=== PATIENT | female | born 1990 | race Caucasian/White ===

== ENCOUNTER 2016-05-28 14:03 | Emergency (ER) | payer MEDICAID, OTHER, SELFPAY ==
[~2016-05-28] VITALS: Ht 165.1 cm; Wt 95.3 kg
[2016-05-28 14:04] VITALS: BP 132/80
[2016-05-28] MEDS ORDERED: PERCOCET 5MG/325MG TAB PO ONE (15:15)
[2016-05-28 15:19] LABS: BASO % 0.6 % (0.0-1.0); EOS # 0.2 K/mm3 (0.0-0.50); EOS % 2.5 % (0.0-3.0); LARGE UNSTAINED CELL # 0.1 K/mm3 (0.0-0.4); LARGE UNSTAINED CELL % 1.3 % (0.0-4.0); LYMPH # 2.1 K/mm3 (1.5-6.5); LYMPH % 28.3 % (24.0-44.0); MEAN CORPUSCULAR HEMOGLOBIN 28.5 pg (27.0-33.0); MEAN CORPUSCULAR HGB CONC 32.8 g/dl (32.0-36.5); MEAN CORPUSCULAR VOLUME 87.1 fl (80.0-96.0); MONO # 0.3 K/mm3 (0.0-0.8); MONO % 3.7 % (0.0-5.0); NEUTROPHILS # 4.5 K/mm3 (1.8-7.7); NEUTROPHILS % 63.7 % (36.0-66.0); PLATELET COUNT, AUTOMATED 210 k/mm3 (150-450); RED CELL DISTRIBUTION WIDTH 12.1 % (11.5-14.5)
[2016-05-28 15:38] LABS: ANION GAP 10 MEQ/L (8-16); BLOOD UREA NITROGEN 19 MG/DL (7-18); CALCIUM LEVEL 9.2 MG/DL (8.5-10.1); CARBON DIOXIDE LEVEL 25 MEQ/L (21-32); CHLORIDE LEVEL 107 MEQ/L (98-107); CREATININE FOR GFR 0.83 MG/DL (0.55-1.02); GLOMERULAR FILTRATION RATE > 60.0 (>60); GLUCOSE, FASTING 112 MG/DL (70-105); POTASSIUM SERUM 3.8 MEQ/L (3.5-5.1); SODIUM LEVEL 142 MEQ/L (136-145)
[2016-05-28 15:44] LABS: ERYTHROCYTE SEDIMENTATION RATE 23 mm/hr (0-20)
--- NOTE | 2016-05-28 15:51 | REP ---
Left upper extremity duplex Doppler venous ultrasound. Real time compression and duplex Doppler evaluation of the left upper extremity deep venous system is performed. The left subclavian, jugular, axillary, brachial, basilic and cephalic veins are fully compressible where accessible with transducer pressure, and demonstrate no intraluminal thrombus and normal venous waveforms. There is no evidence of deep venous thrombosis. Impression: No evidence of deep venous thrombosis of the left upper extremity deep vein system. Signed by Jamal Vegas MD 05/28/2016 03:42 P
[2016-05-28] MEDS ORDERED: PERC5TAB6 PO (16:06)
[2016-05-28] MEDS ORDERED: NAPR500T PO (16:06)
--- NOTE | 2016-05-28 16:12 | REP ---
LEFT SHOULDER: REASON: Pain. HISTORY: Myositis ossificans. There is a large calcification in the left shoulder girdle which is oval in shape and measures approximately 6.2 x 3.7 cm. This large calcification obscures the glenohumeral joint in all views. There is no evidence of an acute fracture or dislocation. IMPRESSION: Large calcification in the left shoulder girdle consistent with the patient's history or known myositis ossificans. Signed by Robb Garza DO 05/29/2016 09:01 A
== END 2016-05-28 16:24 | disposition home or self-care (01) ==
LOC: M ED 15:49
DX: M61.11 Myositis ossificans progressiva, shoulder (principal)

== ENCOUNTER 2016-05-31 20:54 | Emergency (ER) | payer MEDICAID, SELFPAY ==
[~2016-05-31] VITALS: Ht 165.1 cm; Wt 86.2 kg
[~2016-05-31 20:54] MED LIST: NAPR500T PO; PERC5TAB6 PO
[2016-06-01 02:03] VITALS: BP 157/76
== END 2016-06-01 04:11 | disposition left against medical advice (07) ==
LOC: M ED 22:42
DX: M25.512 Pain in left shoulder (principal); Z53.21 Procedure and treatment not carried out due to patient leaving prior to being seen by health care provider

== ENCOUNTER → 2016-07-18 | Outpatient (RCR) | payer MEDICAID, OTHER | LOC: M PT 07-09 12:22 | PROVIDERS: ATTEND Orthopaedic Surgery | DX: Z51.89 Encounter for other specified aftercare (principal); M25.512 Pain in left shoulder; G89.29 Other chronic pain; M25.612 Stiffness of left shoulder, not elsewhere classified; M61.012 Myositis ossificans traumatica, left shoulder ==

== ENCOUNTER → 2016-07-23 | Outpatient (CLI) | payer OTHER ==
--- NOTE | 2016-07-24 01:53 | REP ---
Clinical: Pain. Technique: Internal rotation, external rotation, and Y view. Comparison: 05/28/2016. Findings: Large ovoid calcifications overlie the shoulder joint essentially unchanged compared to 05/28/2016, and may in part be a intra-articular. Associated inferior subluxation of the glenohumeral joint is also suggested. The acromioclavicular joint appears relatively maintained. Impression: 1. Large ovoid calcification similar to prior examination may be within soft tissues and/or intra-articular. 2. Inferior subluxation of the glenohumeral joint is suggested. Signed by Roger Segundo MD 07/24/2016 01:44 A
== END ==
LOC: M RAD 12:15
PROVIDERS: ATTEND Psychiatry & Neurology Neurology
DX: M61.412 Other calcification of muscle, left shoulder (principal); S43.032A Inferior subluxation of left humerus, initial encounter; M25.512 Pain in left shoulder; X58.XXXA Exposure to other specified factors, initial encounter; Y92.9 Unspecified place or not applicable; Y93.9 Activity, unspecified; Y99.9 Unspecified external cause status

== ENCOUNTER 2016-08-13 12:30 | Outpatient (RCR) | payer OTHER ==
[~2016-08-13 12:30] MED LIST changes: +PERC5TAB12 PO; -PERC5TAB6 PO
== END 2016-08-17 | disposition home or self-care (01) ==
LOC: M PT 12:30
PROVIDERS: ATTEND Orthopaedic Surgery
DX: Z51.89 Encounter for other specified aftercare (principal); M25.512 Pain in left shoulder; G89.29 Other chronic pain; M61.012 Myositis ossificans traumatica, left shoulder; M25.612 Stiffness of left shoulder, not elsewhere classified

== ENCOUNTER → 2016-10-30 | Outpatient (REF) | payer OTHER | LOC: M LAB REF 16:40 | PROVIDERS: ATTEND Physician Assistant | DX: J02.9 Acute pharyngitis, unspecified (principal) ==

== ENCOUNTER → 2017-04-27 | Outpatient (REF) | payer OTHER ==
[2017-04-27 15:55] LABS: APPEARANCE, URINE CLEAR (CLEAR); BACTERIA, URINE AUTO 1+ (NEGATIVE); BILIRUBIN, URINE AUTO NEGATIVE (NEGATIVE); BLOOD, URINE BLOOD 1+ (NEGATIVE); COLOR, URINE YELLOW (YELLOW); GLUCOSE, URINE (UA) AUTO NEGATIVE (NEGATIVE); KETONE, URINE AUTO NEGATIVE (NEGATIVE); LEUKOCYTE ESTERASE, URINE AUTO TRACE (NEGATIVE); MUCUS, URINE SMALL (NEGATIVE); NITRITE, URINE AUTO NEGATIVE (NEGATIVE); PROTEIN, URINE AUTO NEGATIVE (NEGATIVE); RBC, URINE AUTO 5 /HPF (0-3); SPECIFIC GRAVITY URINE AUTO 1.017 (1.002-1.035); SQUAMOUS EPITHELIAL CELL UR AU 1 /HPF (0-6); UROBILINOGEN, URINE AUTO 0.2 mg/dL (0.0-2.0); WBC, URINE AUTO 20 /HPF (0-3)
== END ==
LOC: M LAB REF 15:25
DX: N39.0 Urinary tract infection, site not specified (principal)

== ENCOUNTER → 2019-11-26 | Outpatient (CLI) | payer OTHER ==
[~2019-11-26] MED LIST changes: +NAPR-837 PO; -NAPR500T PO
[2019-11-26 20:23] LABS: FREE T3 2.8 PG/ML (2.2-4.0); THYROID STIMULATING HORMONE 0.733 uIU/ML (0.358-3.740); THYROXINE (T4) 7.7 UG/DL (4.5-12.0)
== END ==
LOC: M WUC 15:55
PROVIDERS: ATTEND Anesthesiology Pain Medicine
DX: E03.9 Hypothyroidism, unspecified (principal)

== ENCOUNTER → 2020-03-05 | Outpatient (REF) | payer OTHER ==
[2020-03-05 17:06] LABS: APPEARANCE, URINE HAZY (CLEAR); BACTERIA, URINE AUTO NEGATIVE (NEGATIVE); BILIRUBIN, URINE AUTO NEGATIVE (NEGATIVE); BLOOD, URINE BLOOD NEGATIVE (NEGATIVE); COLOR, URINE YELLOW (YELLOW); GLUCOSE, URINE (UA) AUTO NEGATIVE (NEGATIVE); KETONE, URINE AUTO NEGATIVE (NEGATIVE); LEUKOCYTE ESTERASE, URINE AUTO NEGATIVE (NEGATIVE); MUCUS, URINE SMALL (NEGATIVE); NITRITE, URINE AUTO NEGATIVE (NEGATIVE); PROTEIN, URINE AUTO NEGATIVE (NEGATIVE); RBC, URINE AUTO 2 /HPF (0-3); SPECIFIC GRAVITY URINE AUTO 1.026 (1.002-1.035); SQUAMOUS EPITHELIAL CELL UR AU 1 /HPF (0-6); UROBILINOGEN, URINE AUTO 0.2 mg/dL (0.0-2.0); WBC, URINE AUTO 1 /HPF (0-3)
[2020-03-05 18:19] LABS: CHLAMYDIA DNA AMPLIFICATION NEGATIVE (NEGATIVE); GC DNA AMPLIFICATION NEGATIVE (NEGATIVE)
== END ==
LOC: M LAB REF 16:36
PROVIDERS: ATTEND Physician Assistant Medical
DX: R30.0 Dysuria (principal)

== ENCOUNTER → 2020-10-25 | Outpatient (CLI) | payer OTHER ==
[2020-10-25 17:22] LABS: FREE T3 2.4 PG/ML (2.2-4.0); THYROID STIMULATING HORMONE 0.548 uIU/ML (0.358-3.740)
== END ==
LOC: M LAB 16:12
PROVIDERS: ATTEND Anesthesiology Pain Medicine
DX: E03.9 Hypothyroidism, unspecified (principal)

== ENCOUNTER 2021-09-03 11:14 | Emergency (ER) | payer OTHER ==
[~2021-09-03] VITALS: Ht 165.1 cm; Wt 88.4 kg
[2021-09-03] MEDS ORDERED: HYDR-3719 (11:29)
[2021-09-03] MEDS ORDERED: ONDANSETRON 4MG 2ML VIAL IV ONE (12:15)
[2021-09-03] MEDS ORDERED: NS 1,000 ML IV ONE (12:15)
[2021-09-03 12:52] LABS: BASO % 0.3 % (0.0-1.0); EOS # 0.1 10^3/uL (0.0-0.5); EOS % 0.8 % (0.0-3.0); HEMATOCRIT 38.5 % (36.0-47.0); HEMOGLOBIN 13.2 g/dl (12.0-15.5); LYMPH # 1.9 10^3/uL (1.5-5.0); LYMPH % 21.6 % (24.0-44.0); MEAN CORPUSCULAR HEMOGLOBIN 30.3 pg (27.0-33.0); MEAN CORPUSCULAR HGB CONC 34.3 g/dl (32.0-36.5); MEAN CORPUSCULAR VOLUME 88.3 fl (80.0-96.0); MONO # 0.4 10^3/uL (0.0-0.8); MONO % 4.7 % (2.0-8.0); NEUTROPHILS # 6.2 10^3/uL (1.5-8.5); NEUTROPHILS % 72.3 % (36.0-66.0); PLATELET COUNT, AUTOMATED 182 10^3/uL (150-450); RED BLOOD COUNT 4.36 10^6/uL (4.00-5.40); WHITE BLOOD COUNT 8.6 10^3/uL (4.0-10.0)
[2021-09-03 13:52] LABS: HCG, SERUM QUALITATIVE POSITIVE (NEGATIVE)
[2021-09-03 14:30] LABS: ALBUMIN 4.1 GM/DL (3.2-5.2); ALT/SGPT 16 U/L (12-78); BILIRUBIN,DIRECT 0.4 MG/DL (0.0-0.2); BILIRUBIN,TOTAL 1.9 MG/DL (0.2-1.0); BLOOD UREA NITROGEN 11 MG/DL (7-18); CALCIUM LEVEL 8.8 MG/DL (8.5-10.1); CARBON DIOXIDE LEVEL 21 MEQ/L (21-32); CHLORIDE LEVEL 109 MEQ/L (98-107); CREATININE FOR GFR 0.81 MG/DL (0.55-1.30); FREE THYROXINE INDEX 3.5 % (1.3-4.8); GLOMERULAR FILTRATION RATE > 60.0 (>60); GLUCOSE, FASTING 76 MG/DL (70-100); HCG, SERUM QUANTITATIVE 25805 MIU/ML; LIPASE 168 U/L (73-393); POTASSIUM SERUM 3.7 MEQ/L (3.5-5.1); SODIUM LEVEL 139 MEQ/L (136-145); T UPTAKE 31 % (30-39); THYROID STIMULATING HORMONE 0.746 uIU/ML (0.358-3.740); THYROXINE (T4) 11.2 UG/DL (4.5-12.0); TOTAL PROTEIN 7.3 GM/DL (6.4-8.2)
[2021-09-03 17:21] VITALS: BP 128/75
== END 2021-09-03 18:41 | disposition home or self-care (01) ==
LOC: M ED 11:14
DX: O26.811 Pregnancy related exhaustion and fatigue, first trimester (principal)
CPT/HCPCS: 76801; 76817; 80048; 80076; 83690; 84436; 84443; 84479; 84702; 84703; 85025; 87486; 87581; 87633; 87798; 93005; 93976; 96361; 96374; 99284; J2405

== ENCOUNTER 2021-09-07 19:53 | Emergency (ER) | payer OTHER ==
[~2021-09-07] VITALS: Ht 165.1 cm; Wt 84.5 kg
[~2021-09-07 19:53] MED LIST changes: +HYDR-3719
[2021-09-07 19:59] VITALS: BP 108/66
== END 2021-09-08 00:54 | disposition left against medical advice (07) ==
LOC: M ED 19:53
DX: Z53.21 Procedure and treatment not carried out due to patient leaving prior to being seen by health care provider (principal)

== ENCOUNTER 2021-09-18 10:15 | Emergency (ER) | payer OTHER ==
[~2021-09-18] VITALS: Ht 165.1 cm; Wt 84.6 kg
[2021-09-18] MEDS ORDERED: ONDA4TAB6 (10:26)
[2021-09-18] MEDS ORDERED: HYDR-3719 (10:26)
[2021-09-18 10:57] LABS: BASO % 0.3 % (0.0-1.0); EOS # 0.1 10^3/uL (0.0-0.5); EOS % 0.5 % (0.0-3.0); HEMATOCRIT 39.1 % (36.0-47.0); HEMOGLOBIN 12.9 g/dl (12.0-15.5); LYMPH % 21.2 % (24.0-44.0); MEAN CORPUSCULAR HEMOGLOBIN 29.6 pg (27.0-33.0); MEAN CORPUSCULAR VOLUME 89.7 fl (80.0-96.0); MONO # 0.4 10^3/uL (0.0-0.8); MONO % 4.6 % (2.0-8.0); NEUTROPHILS # 6.7 10^3/uL (1.5-8.5); NEUTROPHILS % 73.1 % (36.0-66.0); PLATELET COUNT, AUTOMATED 187 10^3/uL (150-450); RED BLOOD COUNT 4.36 10^6/uL (4.00-5.40); WHITE BLOOD COUNT 9.2 10^3/uL (4.0-10.0)
[2021-09-18] MEDS ORDERED: NS 1,000 ML IV ONE (11:15)
[2021-09-18] MEDS ORDERED: METOCLOPRAMIDE INJ 10MG/2ML VIAL (J2765 PER 1) IV ONE (11:15)
[2021-09-18 11:17] LABS: HCG, SERUM QUALITATIVE POSITIVE (NEGATIVE)
[2021-09-18 11:24] LABS: ALBUMIN 3.9 GM/DL (3.2-5.2); ALT/SGPT 17 U/L (12-78); BILIRUBIN,DIRECT 0.5 MG/DL (0.0-0.2); BILIRUBIN,TOTAL 1.8 MG/DL (0.2-1.0); BLOOD UREA NITROGEN 14 MG/DL (7-18); CALCIUM LEVEL 9.9 MG/DL (8.5-10.1); CARBON DIOXIDE LEVEL 21 MEQ/L (21-32); CHLORIDE LEVEL 107 MEQ/L (98-107); CREATININE FOR GFR 0.78 MG/DL (0.55-1.30); GLOMERULAR FILTRATION RATE > 60.0 (>60); GLUCOSE, FASTING 84 MG/DL (70-100); LIPASE 187 U/L (73-393); SODIUM LEVEL 138 MEQ/L (136-145); TOTAL PROTEIN 7.3 GM/DL (6.4-8.2)
[2021-09-18] MEDS ORDERED: REGL5TAB2 PO (13:35)
[2021-09-18 13:46] VITALS: BP 111/68
== END 2021-09-18 13:55 | disposition home or self-care (01) ==
LOC: M ED 10:15
DX: Z32.01 Encounter for pregnancy test, result positive (principal); O99.280 Endocrine, nutritional and metabolic diseases complicating pregnancy, unspecified trimester; O21.9 Vomiting of pregnancy, unspecified; Z3A.08 8 weeks gestation of pregnancy
CPT/HCPCS: 76801; 80048; 80076; 81001; 83690; 84703; 85025; 87086; 93976; 96361; 96374; 99284; J2765

== ENCOUNTER → 2021-09-20 | Outpatient (REF) | payer OTHER ==
[~2021-09-20] MED LIST changes: +ONDA4TAB6; +REGL5TAB2 PO
[2021-09-20 12:46] LABS: BASO % 0.5 % (0.0-1.0); EOS # 0.1 10^3/uL (0.0-0.5); EOS % 0.9 % (0.0-3.0); HEMATOCRIT 37.4 % (36.0-47.0); HEMOGLOBIN 12.3 g/dl (12.0-15.5); LYMPH % 24.8 % (24.0-44.0); MEAN CORPUSCULAR HGB CONC 32.9 g/dl (32.0-36.5); MEAN CORPUSCULAR VOLUME 91.2 fl (80.0-96.0); MONO # 0.4 10^3/uL (0.0-0.8); MONO % 4.7 % (2.0-8.0); NEUTROPHILS # 5.6 10^3/uL (1.5-8.5); PLATELET COUNT, AUTOMATED 193 10^3/uL (150-450); WHITE BLOOD COUNT 8.2 10^3/uL (4.0-10.0)
[2021-09-20 18:14] LABS: ALBUMIN 3.7 GM/DL (3.2-5.2); ALT/SGPT 23 U/L (12-78); BLOOD UREA NITROGEN 10 MG/DL (7-18); CARBON DIOXIDE LEVEL 22 MEQ/L (21-32); CHLORIDE LEVEL 106 MEQ/L (98-107); CHOLESTEROL LEVEL 203 MG/DL (<200); CHOLESTEROL RISK RATIO 2.636 (<5); CREATININE FOR GFR 0.68 MG/DL (0.55-1.30); FREE T4 1.04 NG/DL (0.76-1.46); GLOMERULAR FILTRATION RATE > 60.0 (>60); GLUCOSE, FASTING 91 MG/DL (70-100); HDL CHOLESTEROL 77 MG/DL (>40); LDL CHOLESTEROL 103 MG/DL (<100); NON-HDL-C 126 MG/DL; POTASSIUM SERUM 4.1 MEQ/L (3.5-5.1); SODIUM LEVEL 136 MEQ/L (136-145); THYROID STIMULATING HORMONE 0.943 uIU/ML (0.358-3.740); TOTAL PROTEIN 6.9 GM/DL (6.4-8.2); TRIGLYCERIDES LEVEL 117 MG/DL (<150)
[2021-09-20 18:53] LABS: TESTOSTERONE 84 NG/DL (14-76)
== END ==
LOC: M SFHCADAM 10:14
PROVIDERS: ATTEND Family Medicine
DX: Z00.00 Encounter for general adult medical examination without abnormal findings (principal); E28.2 Polycystic ovarian syndrome

== ENCOUNTER → 2021-10-05 | Outpatient (CLI) | payer OTHER ==
[2021-10-05 14:11] LABS: BASO % 0.3 % (0.0-1.0); EOS % 0.3 % (0.0-3.0); HEMATOCRIT 37.6 % (36.0-47.0); HEMOGLOBIN 12.6 g/dl (12.0-15.5); LYMPH # 1.6 10^3/uL (1.5-5.0); LYMPH % 18.3 % (24.0-44.0); MEAN CORPUSCULAR HEMOGLOBIN 30.1 pg (27.0-33.0); MEAN CORPUSCULAR HGB CONC 33.5 g/dl (32.0-36.5); MEAN CORPUSCULAR VOLUME 89.7 fl (80.0-96.0); MONO # 0.3 10^3/uL (0.0-0.8); MONO % 3.6 % (2.0-8.0); NEUTROPHILS # 6.7 10^3/uL (1.5-8.5); NEUTROPHILS % 77.3 % (36.0-66.0); PLATELET COUNT, AUTOMATED 182 10^3/uL (150-450); RED BLOOD COUNT 4.19 10^6/uL (4.00-5.40); WHITE BLOOD COUNT 8.7 10^3/uL (4.0-10.0)
[2021-10-05 14:48] LABS: HEMOGLOBIN A1c 5.1 %
[2021-10-05 15:17] LABS: HEPATITIS C VIRUS ABY INDEX < 0.0 INDEX (<0.8); HIV 1&2 SCREEN CENTAUR NEGATIVE (NEGATIVE)
[2021-10-05 16:46] LABS: GC DNA AMPLIFICATION NEGATIVE (NEGATIVE)
== END ==
LOC: M PLALAB 11:27
PROVIDERS: ATTEND Advanced Practice Midwife
DX: O99.281 Endocrine, nutritional and metabolic diseases complicating pregnancy, first trimester (principal)

== ENCOUNTER → 2021-12-06 | Outpatient (CLI) | payer OTHER | LOC: M WHC 12:22 | PROVIDERS: ATTEND Obstetrics & Gynecology | DX: Z34.92 Encounter for supervision of normal pregnancy, unspecified, second trimester (principal); Z3A.19 19 weeks gestation of pregnancy ==

== ENCOUNTER → 2021-12-06 | Outpatient (CLI) | payer OTHER | LOC: M PLALAB 14:46 | PROVIDERS: ATTEND Specialist | DX: Z34.82 Encounter for supervision of other normal pregnancy, second trimester (principal) ==

== ENCOUNTER 2021-12-16 10:45 | Outpatient (CLI) | payer OTHER ==
[2021-12-16] VITALS (8 sets, daily range): BP systolic 119–147; BP diastolic 59–85
[~2021-12-16] VITALS: Ht 165.1 cm; Wt 92.8 kg
[~2021-12-16 10:45] MED LIST changes: +HYDR-3719 PO
[2021-12-16] MEDS ORDERED: PREN1CHW4 PO (11:19)
[2021-12-16] MEDS ORDERED: PROG200C22 PV (11:19)
[2021-12-16] MEDS ORDERED: HOME MED LIST COMPLETE! XX SCH (11:20)
[2021-12-16 15:37] LABS: HEMATOCRIT 33.4 % (36.0-47.0); HEMOGLOBIN 11.1 g/dl (12.0-15.5); MEAN CORPUSCULAR HEMOGLOBIN 30.7 pg (27.0-33.0); MEAN CORPUSCULAR HGB CONC 33.2 g/dl (32.0-36.5); MEAN CORPUSCULAR VOLUME 92.3 fl (80.0-96.0); PLATELET COUNT, AUTOMATED 174 10^3/uL (150-450); RED BLOOD COUNT 3.62 10^6/uL (4.00-5.40); WHITE BLOOD COUNT 12.2 10^3/uL (4.0-10.0)
[2021-12-16 15:59] LABS: APPEARANCE, URINE MANUAL CLEAR (CLEAR); BILIRUBIN, URINE MANUAL NEGATIVE (NEGATIVE); BLOOD URINE MANUAL NEGATIVE (NEGATIVE); COLOR, URINE MANUAL LT YELLOW (YELLOW); GLUCOSE, URINE (UA) MANUAL NEGATIVE (NEGATIVE); KETONE, URINE MANUAL 1+ mg/dL (NEGATIVE); LEUKOCYTE ESTERASE, URINE MAN NEGATIVE (NEGATIVE); NITRITE, URINE MANUAL NEGATIVE (NEGATIVE); PROTEIN, URINE MANUAL NEGATIVE (NEGATIVE); UROBILINOGEN, URINE MANUAL NORMAL (NORMAL)
[2021-12-16] MEDS ORDERED: LR 1,000 ML IV SCH ×3 (16:00→22:15)
[2021-12-16] MEDS ORDERED: ceFAZolin SOD 2 GM in IV 1 EA IV ONE (18:40)
[2021-12-16] MEDS ORDERED: BICITRA 30ML SOLN UDC PO ONE (18:40)
[2021-12-16] MEDS ORDERED: CHLOROPROCAINE PRES. FREE 3% 20ML VIAL As Ordered ONE (19:16)
[2021-12-16] MEDS ORDERED: ONDANSETRON 4MG 2ML VIAL IV PRN (20:50)
[2021-12-16] MEDS ORDERED: HYDROMORPHONE HCL 0.5 MG/ 0.5 ML SYRINGE (J1170 PER 1) IV PRN (20:50)
[2021-12-16] MEDS ORDERED: fentaNYL 100 MCG/2 ML INJECTION IV PRN (20:50)
[2021-12-16] MEDS ORDERED: oxyCODONE 5MG TAB PO PRN (20:50)
[2021-12-16] MEDS: INDOMETHACIN 25 MG CAP PO SCH (22:47)
[2021-12-17 01:49] VITALS: BP 97/55
[2021-12-17 05:42] VITALS: BP 96/59
[2021-12-17] MEDS: INDOMETHACIN 25 MG CAP PO SCH ×2 (05:49→13:24)
[2021-12-17] MEDS ORDERED: PRENATAL VITAMINS CHEWABLE TABLET PO SCH (09:00)
[2021-12-17] MEDS ORDERED: INDO-16 PO (13:22)
== END 2021-12-17 13:44 | disposition home or self-care (01) ==
LOC: M LDO 10:45 → M OBS 21:30 → M LDO 12-17 13:44
PROVIDERS: ATTEND Obstetrics & Gynecology
DX: O26.852 Spotting complicating pregnancy, second trimester (principal); O34.32 Maternal care for cervical incompetence, second trimester; Z3A.21 21 weeks gestation of pregnancy
CPT/HCPCS: 59025; 59320; 76815; 76817; 81002; 85027; 86850; 86900; 86901; 87635; J0690; J2400

== ENCOUNTER 2021-12-20 10:18 | Outpatient (CLI) | payer OTHER ==
[~2021-12-20] VITALS: Ht 165.1 cm; Wt 90.9 kg
[~2021-12-20 10:18] MED LIST changes: +INDO-16 PO; +PREN1CHW4 PO; +PROG200C22 PV
[2021-12-20 10:41] VITALS: BP 137/82
[2021-12-20] MEDS ORDERED: HOME MED LIST COMPLETE! XX SCH (10:50)
[2021-12-20 11:12] VITALS: BP 120/77
[2021-12-20 14:44] VITALS: BP 101/63
[2021-12-20 17:51] VITALS: BP 135/83
[2021-12-20] MEDS ORDERED: DOCUSATE SODIUM 100MG CAPSULE PO SCH (21:00)
[2021-12-20 22:00] VITALS: BP 120/76
[2021-12-21 02:00] VITALS: BP 103/58
[2021-12-21 06:00] VITALS: BP 127/78
[2021-12-21 07:30] VITALS: BP 139/86
== END 2021-12-21 08:05 | disposition home or self-care (01) ==
LOC: M LDO 10:18
PROVIDERS: ATTEND Advanced Practice Midwife
DX: O46.92 Antepartum hemorrhage, unspecified, second trimester (principal); O26.892 Other specified pregnancy related conditions, second trimester; R25.2 Cramp and spasm; O34.32 Maternal care for cervical incompetence, second trimester; Z3A.21 21 weeks gestation of pregnancy

== ENCOUNTER → 2021-12-21 | Outpatient (CLI) | payer OTHER | LOC: M WHC 12:04 | PROVIDERS: ATTEND Specialist | DX: Z34.82 Encounter for supervision of other normal pregnancy, second trimester (principal); Z3A.00 Weeks of gestation of pregnancy not specified; Z53.9 Procedure and treatment not carried out, unspecified reason ==

== ENCOUNTER → 2021-12-25 | Outpatient (REF) | payer OTHER ==
[2021-12-25 20:03] LABS: APPEARANCE, URINE MANUAL CLEAR (CLEAR); COLOR, URINE MANUAL YELLOW (YELLOW)
[2021-12-25 20:04] LABS: BILIRUBIN, URINE MANUAL NEGATIVE (NEGATIVE); BLOOD URINE MANUAL NEGATIVE (NEGATIVE); GLUCOSE, URINE (UA) MANUAL NEGATIVE (NEGATIVE); KETONE, URINE MANUAL NEGATIVE (NEGATIVE); LEUKOCYTE ESTERASE, URINE MAN POSITIVE (NEGATIVE); NITRITE, URINE MANUAL NEGATIVE (NEGATIVE); PROTEIN, URINE MANUAL NEGATIVE (NEGATIVE); UROBILINOGEN, URINE MANUAL NORMAL (NORMAL)
[2021-12-25 20:43] LABS: BACTERIA, URINE SMALL AMOUNT; CALCIUM OXALATE CRYSTALS,URINE MOD AMOUNT /hpf; HYALINE CAST, URINE NONE SEEN /lpf (0-1); MUCUS, URINE LARGE AMOUNT (NEGATIVE); SQUAMOUS EPITHELIAL CELL URINE LARGE AMOUNT /hpf (SMALL AMT); WBC, URINE 20-30 /hpf (0-3)
== END ==
LOC: M SFHCWAGY 16:39
PROVIDERS: ATTEND Advanced Practice Midwife
DX: O26.892 Other specified pregnancy related conditions, second trimester (principal)

== ENCOUNTER 2021-12-27 10:10 | Outpatient (CLI) | payer OTHER ==
[~2021-12-27] VITALS: Ht 165.1 cm; Wt 91.2 kg
[2021-12-27 17:07] LABS: BASO % 0.2 % (0.0-1.0); EOS # 0.2 10^3/uL (0.0-0.5); EOS % 1.3 % (0.0-3.0); HEMATOCRIT 31.7 % (36.0-47.0); HEMOGLOBIN 10.5 g/dl (12.0-15.5); LYMPH # 1.8 10^3/uL (1.5-5.0); MEAN CORPUSCULAR HEMOGLOBIN 30.5 pg (27.0-33.0); MEAN CORPUSCULAR HGB CONC 33.1 g/dl (32.0-36.5); MEAN CORPUSCULAR VOLUME 92.2 fl (80.0-96.0); MONO # 0.5 10^3/uL (0.0-0.8); MONO % 4.2 % (2.0-8.0); NEUTROPHILS # 9.5 10^3/uL (1.5-8.5); NEUTROPHILS % 78.6 % (36.0-66.0); PLATELET COUNT, AUTOMATED 175 10^3/uL (150-450); RED BLOOD COUNT 3.44 10^6/uL (4.00-5.40); WHITE BLOOD COUNT 12.1 10^3/uL (4.0-10.0)
[2021-12-27 17:50] LABS: ALT/SGPT 12 U/L (12-78); BILIRUBIN,TOTAL 0.3 MG/DL (0.2-1.0); CREATININE FOR GFR 0.73 MG/DL (0.55-1.30); GLOMERULAR FILTRATION RATE > 60.0 (>60); LDH LACTATE DEHYDROGENASE 122 U/L (84-246); URIC ACID 2.9 MG/DL (2.6-6.0)
[2021-12-27 18:31] LABS: TOTAL PROTEIN,RANDOM URINE 16.5 MG/DL (0.0-12.0)
== END 2021-12-27 18:05 | disposition home or self-care (01) ==
LOC: M LDO 10:10
PROVIDERS: ATTEND Advanced Practice Midwife
DX: O26.892 Other specified pregnancy related conditions, second trimester (principal); O99.282 Endocrine, nutritional and metabolic diseases complicating pregnancy, second trimester; O99.322 Drug use complicating pregnancy, second trimester; F11.90 Opioid use, unspecified, uncomplicated; O26.872 Cervical shortening, second trimester; N89.8 Other specified noninflammatory disorders of vagina; O99.342 Other mental disorders complicating pregnancy, second trimester; F41.9 Anxiety disorder, unspecified; O34.32 Maternal care for cervical incompetence, second trimester; Z3A.22 22 weeks gestation of pregnancy

== ENCOUNTER → 2022-01-04 | Outpatient (CLI) | payer OTHER ==
[~2022-01-04] MED LIST changes: +CYCL-707 PO
== END ==
LOC: M WHC 10:10
PROVIDERS: ATTEND Specialist
DX: Z34.82 Encounter for supervision of other normal pregnancy, second trimester (principal); Z3A.23 23 weeks gestation of pregnancy

== ENCOUNTER 2022-01-05 21:17 | Outpatient (CLI) | payer OTHER ==
[~2022-01-05] VITALS: Ht 165.1 cm; Wt 93.0 kg
[~2022-01-05 21:17] MED LIST changes: -CYCL-707 PO
[2022-01-05 21:29] VITALS: BP 133/86
[2022-01-05] MEDS ORDERED: HOME MED LIST COMPLETE! XX SCH (21:55)
[2022-01-05 22:40] VITALS: BP 131/69
[2022-01-05] MEDS ORDERED: BETAMETHASONE SOLUSPAN 6MG/ML 5ML VIAL (J0702 PER 3MG) IM SCH (23:00)
[2022-01-06 00:36] VITALS: BP 116/62
[2022-01-06 02:36] VITALS: BP 115/58
[2022-01-06 04:36] VITALS: BP 125/67
[2022-01-06 06:42] VITALS: BP 142/73
[2022-01-06 07:52] VITALS: BP 145/101
[2022-01-06] MEDS ORDERED: NORCO, ANEXSIA 5/325MG TABLET (HYDROcodone/ACETAMINOPHEN) PO SCH (09:00)
[2022-01-06] MEDS ORDERED: DOCUSATE SODIUM 100MG CAPSULE PO SCH (09:00)
[2022-01-06] MEDS ORDERED: BISACODYL 10 MG SUPP PR ONE (09:00)
[2022-01-06] MEDS ORDERED: CYCL-707 PO (14:55)
== END 2022-01-06 11:00 | disposition short-term general hospital (02) ==
LOC: M LDO 21:17
PROVIDERS: ATTEND Advanced Practice Midwife
DX: O46.092 Antepartum hemorrhage with other coagulation defect, second trimester (principal); O26.872 Cervical shortening, second trimester; O34.30 Maternal care for cervical incompetence, unspecified trimester; Z3A.23 23 weeks gestation of pregnancy
CPT/HCPCS: 59025; 76815; 87635; 96372; J0702

== ENCOUNTER → 2022-02-05 | Outpatient (CLI) | payer OTHER ==
[~2022-02-05] MED LIST changes: +CYCL-707 PO
[2022-02-05 13:57] LABS: APPEARANCE, URINE MANUAL CLEAR (CLEAR); COLOR, URINE MANUAL YELLOW (YELLOW)
[2022-02-05 14:00] LABS: GLUCOSE, URINE (UA) MANUAL NEGATIVE (NEGATIVE); PROTEIN, URINE MANUAL NEGATIVE (NEGATIVE); SPECIFIC GRAVITY,URINE MANUAL 1.015 (1.002-1.035)
[2022-02-05 14:01] LABS: BILIRUBIN, URINE MANUAL NEGATIVE (NEGATIVE); BLOOD URINE MANUAL POSITIVE (NEGATIVE); KETONE, URINE MANUAL NEGATIVE (NEGATIVE); LEUKOCYTE ESTERASE, URINE MAN NEGATIVE (NEGATIVE); NITRITE, URINE MANUAL NEGATIVE (NEGATIVE); UROBILINOGEN, URINE MANUAL NORMAL (NORMAL)
[2022-02-05 14:14] LABS: BACTERIA, URINE SMALL AMOUNT; HYALINE CAST, URINE NONE SEEN /lpf (0-1); RBC, URINE 0-1 /hpf (0-3); SQUAMOUS EPITHELIAL CELL URINE SMALL AMOUNT /hpf (SMALL AMT)
== END ==
LOC: M PLALAB 11:50
PROVIDERS: ATTEND Advanced Practice Midwife
DX: R30.0 Dysuria (principal)

== ENCOUNTER 2022-04-20 10:57 | Emergency (ER) | payer OTHER ==
[~2022-04-20] VITALS: Ht 165.1 cm; Wt 88.3 kg
[2022-04-20] MEDS ORDERED: NS 1,000 ML IV ONE (13:00)
[2022-04-20] MEDS ORDERED: MECLIZINE 25 MG TABLET PO ONE (13:00)
[2022-04-20 14:01] LABS: BASO % 0.8 % (0.0-1.0); EOS # 0.2 10^3/uL (0.0-0.5); EOS % 3.6 % (0.0-3.0); HEMATOCRIT 43.2 % (36.0-47.0); HEMOGLOBIN 13.9 g/dl (12.0-15.5); LYMPH # 2.4 10^3/uL (1.5-5.0); LYMPH % 47.7 % (24.0-44.0); MEAN CORPUSCULAR HEMOGLOBIN 28.4 pg (27.0-33.0); MEAN CORPUSCULAR HGB CONC 32.2 g/dl (32.0-36.5); MEAN CORPUSCULAR VOLUME 88.2 fl (80.0-96.0); MONO # 0.3 10^3/uL (0.0-0.8); MONO % 5.1 % (2.0-8.0); NEUTROPHILS # 2.2 10^3/uL (1.5-8.5); NEUTROPHILS % 42.6 % (36.0-66.0); PLATELET COUNT, AUTOMATED 207 10^3/uL (150-450); WHITE BLOOD COUNT 5.1 10^3/uL (4.0-10.0)
[2022-04-20 14:22] LABS: FREE THYROXINE INDEX 2.5 % (1.3-4.8); T UPTAKE 32.6 % (22.5-37.0); THYROID STIMULATING HORMONE 0.602 uIU/ML (0.55-4.78); THYROXINE (T4) 7.6 UG/DL (4.5-10.9)
[2022-04-20 14:57] VITALS: BP 126/83
[2022-04-20] MEDS ORDERED: PSEU120T19 PO (15:24)
[2022-04-20] MEDS ORDERED: MECL1TAB31 PO (15:24)
== END 2022-04-20 15:55 | disposition home or self-care (01) ==
LOC: M ED 10:57
DX: H65.01 Acute serous otitis media, right ear (principal); R20.2 Paresthesia of skin; Z79.810 Long term (current) use of selective estrogen receptor modulators (SERMs); Z79.899 Other long term (current) drug therapy; Z91.048 Other nonmedicinal substance allergy status

== ENCOUNTER → 2022-05-21 | Outpatient (REF) | payer OTHER ==
[~2022-05-21] MED LIST changes: +MECL1TAB31 PO; +PSEU120T19 PO
== END ==
LOC: M PLALAB 10:22
PROVIDERS: ATTEND Obstetrics & Gynecology
DX: Z01.419 Encounter for gynecological examination (general) (routine) without abnormal findings (principal)

== ENCOUNTER → 2022-05-29 | Outpatient (REF) | payer OTHER ==
[2022-05-29 18:31] LABS: APPEARANCE, URINE CLEAR (CLEAR); BACTERIA, URINE AUTO NEGATIVE (NEGATIVE); BILIRUBIN, URINE AUTO NEGATIVE (NEGATIVE); BLOOD, URINE BLOOD NEGATIVE (NEGATIVE); COLOR, URINE YELLOW (YELLOW); GLUCOSE, URINE (UA) AUTO NEGATIVE (NEGATIVE); KETONE, URINE AUTO NEGATIVE (NEGATIVE); LEUKOCYTE ESTERASE, URINE AUTO NEGATIVE (NEGATIVE); MUCUS, URINE SMALL (NEGATIVE); NITRITE, URINE AUTO NEGATIVE (NEGATIVE); PROTEIN, URINE AUTO NEGATIVE (NEGATIVE); RBC, URINE AUTO 0 /HPF (0-3); SPECIFIC GRAVITY URINE AUTO 1.026 (1.002-1.035); SQUAMOUS EPITHELIAL CELL UR AU 2 /HPF (0-6); UROBILINOGEN, URINE AUTO 0.2 mg/dL (0.0-2.0); WBC, URINE AUTO 1 /HPF (0-3)
== END ==
LOC: M LAB REF 17:18
PROVIDERS: ATTEND Physician Assistant Medical
DX: N39.0 Urinary tract infection, site not specified (principal)

== ENCOUNTER → 2022-06-22 | Outpatient (REF) | payer OTHER ==
[2022-06-22 13:45] LABS: BASO # 0.1 10^3/uL (0.0-0.2); BASO % 1.1 % (0.0-1.0); EOS # 0.2 10^3/uL (0.0-0.5); EOS % 3.4 % (0.0-3.0); HEMATOCRIT 39.8 % (36.0-47.0); HEMOGLOBIN 13.2 g/dl (12.0-15.5); LYMPH # 1.6 10^3/uL (1.5-5.0); LYMPH % 34.3 % (24.0-44.0); MEAN CORPUSCULAR HEMOGLOBIN 29.6 pg (27.0-33.0); MEAN CORPUSCULAR HGB CONC 33.2 g/dl (32.0-36.5); MEAN CORPUSCULAR VOLUME 89.2 fl (80.0-96.0); MONO # 0.3 10^3/uL (0.0-0.8); MONO % 5.5 % (2.0-8.0); NEUTROPHILS # 2.6 10^3/uL (1.5-8.5); NEUTROPHILS % 55.5 % (36.0-66.0); PLATELET COUNT, AUTOMATED 197 10^3/uL (150-450); RED BLOOD COUNT 4.46 10^6/uL (4.00-5.40); WHITE BLOOD COUNT 4.7 10^3/uL (4.0-10.0)
[2022-06-22 14:02] LABS: ALBUMIN 4.2 G/DL (3.2-5.2); ALKALINE PHOSPHATASE 55 U/L (46-116); ALT/SGPT 17 U/L (7.0-40); AST/SGOT 13 U/L (<34); BILIRUBIN,TOTAL 2.4 MG/DL (0.3-1.2); BLOOD UREA NITROGEN 14 MG/DL (9-23); CALCIUM LEVEL 9.3 MG/DL (8.5-10.1); CARBON DIOXIDE LEVEL 28 MMOL/L (20-31); CHLORIDE LEVEL 106 MMOL/L (98-107); CREATININE FOR GFR 0.77 MG/DL (0.55-1.30); GLOMERULAR FILTRATION RATE > 60.0 (>60); GLUCOSE, FASTING 87 MG/DL (60-100); SODIUM LEVEL 141 MMOL/L (136-145); TOTAL PROTEIN 6.8 G/DL (5.7-8.2)
[2022-06-22 14:03] LABS: C REACTIVE PROTEIN QUANTITATIV < 0.40 MG/DL (<1.0)
[2022-06-22 14:04] LABS: THYROID STIMULATING HORMONE 0.742 uIU/ML (0.55-4.78)
[2022-06-22 14:05] LABS: FREE T4 1.09 NG/DL (0.89-1.76)
[2022-06-22 14:48] LABS: ERYTHROCYTE SEDIMENTATION RATE 13 mm/hr (0-20)
== END ==
LOC: M SFHCADAM 08:48
PROVIDERS: ATTEND Physician Assistant
DX: H93.13 Tinnitus, bilateral (principal); R42 Dizziness and giddiness; R20.2 Paresthesia of skin

== ENCOUNTER 2022-06-26 15:53 | Emergency (ER) | payer OTHER ==
[~2022-06-26] VITALS: Ht 165.1 cm; Wt 83.5 kg
[2022-06-26] MEDS ORDERED: CETI-24 (16:05)
[2022-06-26] MEDS ORDERED: OXYM30SP (16:05)
[2022-06-26] MEDS ORDERED: FLUT50SP17 (16:05)
[2022-06-26] MEDS ORDERED: METOCLOPRAMIDE INJ 10MG/2ML VIAL IV ONE (17:55)
[2022-06-26] MEDS ORDERED: MECLIZINE 25 MG TABLET PO ONE (17:55)
[2022-06-26] MEDS ORDERED: NS 1,000 ML IV ONE (17:55)
[2022-06-26] MEDS ORDERED: NORCO, ANEXSIA 5/325MG TABLET (HYDROcodone/ACETAMINOPHEN) PO ONE (21:15)
[2022-06-26] MEDS ORDERED: MECL-86 PO (22:26)
[2022-06-26 22:33] VITALS: BP 139/94
== END 2022-06-26 22:45 | disposition home or self-care (01) ==
LOC: M ED 15:53
DX: R42 Dizziness and giddiness (principal); J30.1 Allergic rhinitis due to pollen; Z79.899 Other long term (current) drug therapy; Z88.3 Allergy status to other anti-infective agents

== ENCOUNTER → 2022-07-03 | Outpatient (CLI) | payer OTHER ==
[~2022-07-03] MED LIST changes: +CETI-24; +FLUT50SP17; +MECL-86 PO; +OXYM30SP
== END ==
LOC: M RAD 07:40
PROVIDERS: ATTEND Physician Assistant
DX: H90.11 Conductive hearing loss, unilateral, right ear, with unrestricted hearing on the contralateral side (principal)

== ENCOUNTER 2022-07-16 08:05 | Emergency (ER) | payer OTHER ==
[~2022-07-16] VITALS: Ht 165.1 cm; Wt 81.7 kg
[2022-07-16] MEDS ORDERED: ONDA4TAB6 (08:14)
[2022-07-16] MEDS ORDERED: HYDR-3713 (08:14)
[2022-07-16] MEDS ORDERED: B-COSUB2 SL (08:14)
[2022-07-16] MEDS ORDERED: FLUO20CA22 (08:14)
[2022-07-16] MEDS ORDERED: MAGN200T PO (08:14)
[2022-07-16 09:23] VITALS: BP 142/87
== END 2022-07-16 09:30 | disposition home or self-care (01) ==
LOC: M ED 08:05
DX: J33.9 Nasal polyp, unspecified (principal); F41.9 Anxiety disorder, unspecified; H69.90 Unspecified Eustachian tube disorder, unspecified ear; J30.1 Allergic rhinitis due to pollen; Z79.899 Other long term (current) drug therapy; Z88.3 Allergy status to other anti-infective agents

== ENCOUNTER 2022-08-23 09:38 | Inpatient (IN) | payer MEDICAID, OTHER ==
[~2022-08-23] VITALS: Ht 165.1 cm; Wt 77.7 kg
[~2022-08-23 09:38] MED LIST changes: +B-COSUB2 SL; +FLUO20CA22; +HYDR-3363 PO; +HYDR-3713; +HYDR-3713 PO; +IBUP200C25 PO; +MAGN200T PO; -PROG200C22 PV; +PROG200C32 PV
[2022-08-23] MEDS ORDERED: MED REC IN PROGRESS XX SCH (10:15)
[2022-08-23 10:45] LABS: HEMATOCRIT 39.2 % (36.0-47.0); MEAN CORPUSCULAR HEMOGLOBIN 29.1 pg (27.0-33.0); MEAN CORPUSCULAR HGB CONC 33.2 g/dl (32.0-36.5); MEAN CORPUSCULAR VOLUME 87.7 fl (80.0-96.0); PLATELET COUNT, AUTOMATED 173 10^3/uL (150-450); RED BLOOD COUNT 4.47 10^6/uL (4.00-5.40); WHITE BLOOD COUNT 4.4 10^3/uL (4.0-10.0)
[2022-08-23 11:12] LABS: AMPHETAMINES LEVEL URINE NEGATIVE (NEGATIVE); BARBITURATES URINE NEGATIVE (NEGATIVE); BENZODIAZEPINES URINE NEGATIVE (NEGATIVE); COCAINE METABOLITE URINE NEGATIVE (NEGATIVE); METHADONE URINE NEGATIVE (NEGATIVE); PHENCYCLIDINE URINE NEGATIVE (NEGATIVE)
[2022-08-23 11:13] LABS: CANNABINOIDS URINE NEGATIVE (NEGATIVE)
[2022-08-23 11:15] LABS: ETHYL ALCOHOL (ETHANOL) < 0.003 % (0.000-0.010)
[2022-08-23 11:16] LABS: ACETAMINOPHEN LEVEL 3.6 UG/ML (10.0-20.0); SALICYLATE LEVEL < 3.0 MG/DL (<30)
[2022-08-23 11:17] LABS: ALBUMIN 4.2 G/DL (3.2-5.2); ALKALINE PHOSPHATASE 63 U/L (46-116); ALT/SGPT < 9 U/L (7.0-40); AST/SGOT < 8 U/L (<34); BILIRUBIN,DIRECT 0.5 MG/DL (<0.4); BLOOD UREA NITROGEN 17 MG/DL (9-23); CALCIUM LEVEL 9.1 MG/DL (8.5-10.1); CARBON DIOXIDE LEVEL 27 MMOL/L (20-31); CHLORIDE LEVEL 108 MMOL/L (98-107); CREATININE FOR GFR 0.81 MG/DL (0.55-1.30); GLOMERULAR FILTRATION RATE > 60.0 (>60); GLUCOSE, FASTING 90 MG/DL (60-100); POTASSIUM SERUM 3.9 MMOL/L (3.5-5.1); SODIUM LEVEL 142 MMOL/L (136-145); THYROID STIMULATING HORMONE 0.893 uIU/ML (0.55-4.78); TOTAL PROTEIN 6.6 G/DL (5.7-8.2)
[2022-08-23 11:18] LABS: OPIATES URINE POSITIVE (NEGATIVE)
[2022-08-23 11:28] LABS: HCG, SERUM QUALITATIVE NEGATIVE (NEGATIVE)
[2022-08-23] MEDS ORDERED: traZODone 50 MG TAB PO PRN (13:15)
[2022-08-23] MEDS ORDERED: IBUPROFEN 400MG TAB PO PRN (13:15)
[2022-08-23] MEDS ORDERED: MAALOX 30 ML SUSP *UDC PO PRN (13:15)
[2022-08-23] MEDS ORDERED: MOM 30ML SUSPENSION UDC PO PRN (13:15)
[2022-08-23] MEDS ORDERED: diphenhydrAMINE 25MG CAP PO PRN (13:15)
[2022-08-23] MEDS ORDERED: ACETAMINOPHEN TAB 650MG DOSE (2X325MG) PO PRN (13:15)
[2022-08-23] MEDS: NICOTINE 21MG/24HR 1 EA TRANSDERMAL TD SCH (14:33)
[2022-08-23 16:16] VITALS: BP 136/81; TEMP 97.1; O2SAT 99
[2022-08-23] MEDS ORDERED: NORCO, ANEXSIA 5/325MG TABLET (HYDROcodone/ACETAMINOPHEN) PO ONE (20:55)
[2022-08-23] MEDS ORDERED: IBUP-1730 PO (21:42)
[2022-08-23] MEDS ORDERED: BACL10TA2 PO (21:42)
[2022-08-23] MEDS ORDERED: LORA-674 PO (21:42)
[2022-08-23] MEDS ORDERED: VITMTA PO (21:42)
[2022-08-23] MEDS ORDERED: HYDR-4571 PO (21:42)
[2022-08-23] MEDS ORDERED: ONDA4TAB6 PO (21:42)
[2022-08-23] MEDS ORDERED: OFLO5DRO AD (21:42)
[2022-08-23] MEDS ORDERED: HOME MED LIST COMPLETE! XX SCH (21:45)
[2022-08-24] MEDS ORDERED: BACLOFEN 10 MG TAB PO PRN (01:10)
[2022-08-24] MEDS ORDERED: ONDANSETRON 4MG ORAL DISINTEGRATING TAB PO PRN (01:10)
[2022-08-24 06:08] VITALS: BP 145/81; TEMP 97.3; O2SAT 100
[2022-08-24] MEDS: LORATADINE 10 MG TAB PO SCH (08:11)
[2022-08-24] MEDS: NICOTINE 21MG/24HR 1 EA TRANSDERMAL TD SCH (08:12)
[2022-08-24] MEDS ORDERED: MIRTAZAPINE 7.5MG PER 1/2 TABLET PO PRN (12:40)
[2022-08-24] MEDS: ESCITALOPRAM OXALATE 5MG TABLET (LEXAPRO) PO SCH (13:29)
[2022-08-24] MEDS: NORCO, ANEXSIA 5/325MG TABLET (HYDROcodone/ACETAMINOPHEN) PO PRN (14:31)
[2022-08-24 17:31] VITALS: BP 135/91; TEMP 97; O2SAT 100
[2022-08-24 19:19] VITALS: BP_SYST 138; BP_SYST 142; BP_SYST 147; BP_DIAS 96; BP_DIAS 98
[2022-08-24] MEDS ORDERED: MECLIZINE 25 MG TABLET PO PRN (19:35)
[2022-08-24] MEDS: OFLOXACIN 0.3 % (OCUFLOX) OPTH SOL 5ML XX SCH (19:54)
[2022-08-24] MEDS: SENOKOT S TAB PO SCH (19:58)
[2022-08-24] MEDS: RAMELTEON 8 MG TAB (ROZEREM) PO SCH (19:58)
[2022-08-25 06:27] VITALS: BP_SYST 126; BP_SYST 128; BP_SYST 133; BP_DIAS 78; BP_DIAS 89; BP_DIAS 97
[2022-08-25] MEDS ORDERED: ESCITALOPRAM OXALATE 5MG TABLET (LEXAPRO) PO SCH (09:00)
[2022-08-25] MEDS: LORATADINE 10 MG TAB PO SCH (09:00)
[2022-08-25] MEDS: OFLOXACIN 0.3 % (OCUFLOX) OPTH SOL 5ML XX SCH ×2 (09:21→21:00)
[2022-08-25] MEDS: ESCITALOPRAM OXALATE 5MG TABLET (LEXAPRO) PO SCH (09:21)
[2022-08-25] MEDS: NORCO, ANEXSIA 5/325MG TABLET (HYDROcodone/ACETAMINOPHEN) PO PRN (12:51)
[2022-08-25 15:31] VITALS: BP_SYST 149; BP_SYST 152; BP_SYST 158; BP_DIAS 95; BP_DIAS 98; BP_DIAS 99
[2022-08-25 16:38] VITALS: BP 144/90; TEMP 97; O2SAT 100
[2022-08-25] MEDS: RAMELTEON 8 MG TAB (ROZEREM) PO SCH (21:00)
[2022-08-25] MEDS: SENOKOT S TAB PO SCH (21:00)
[2022-08-26 06:52] VITALS: BP 142/77; TEMP 97.6; O2SAT 96
[2022-08-26] MEDS: ESCITALOPRAM OXALATE 5MG TABLET (LEXAPRO) PO SCH (08:10)
[2022-08-26] MEDS: OFLOXACIN 0.3 % (OCUFLOX) OPTH SOL 5ML XX SCH (08:10)
[2022-08-26] MEDS: NORCO, ANEXSIA 5/325MG TABLET (HYDROcodone/ACETAMINOPHEN) PO PRN ×2 (08:10→18:53)
[2022-08-26] MEDS: LORATADINE 10 MG TAB PO SCH (08:10)
[2022-08-26 18:09] VITALS: BP 132/96; TEMP 96.8; O2SAT 100
[2022-08-26] MEDS: CIPRODEX OTIC SUSP 7.5ML AD SCH (20:00)
[2022-08-26] MEDS: SENOKOT S TAB PO SCH (21:00)
[2022-08-26] MEDS: RAMELTEON 8 MG TAB (ROZEREM) PO SCH (21:00)
[2022-08-27] MEDS: NORCO, ANEXSIA 5/325MG TABLET (HYDROcodone/ACETAMINOPHEN) PO PRN (06:51)
[2022-08-27 06:55] VITALS: BP 131/79; TEMP 97.6; O2SAT 98
[2022-08-27] MEDS: CIPRODEX OTIC SUSP 7.5ML AD SCH (07:59)
[2022-08-27] MEDS: LORATADINE 10 MG TAB PO SCH (08:00)
[2022-08-27] MEDS ORDERED: ESCITALOPRAM OXALATE 10 MG TAB (LEXAPRO) PO SCH (09:00)
[2022-08-27] MEDS ORDERED: LEXA1TAB PO (13:33)
[2022-08-27] MEDS ORDERED: HYDR-643 PO (13:33)
== END 2022-08-27 14:18 | disposition home or self-care (01) | DRG 561 ==
LOC: M ED 09:38 → M ED INP 13:14 → M PSY 15:26
PROVIDERS: ADMIT Student in an Organized Health Care Education/Training Program; ATTEND Student in an Organized Health Care Education/Training Program
DX: O99.345 Other mental disorders complicating the puerperium (principal); F53.0 Postpartum depression; Z79.899 Other long term (current) drug therapy; F41.9 Anxiety disorder, unspecified; M60.811 Other myositis, right shoulder

== ENCOUNTER → 2022-09-05 | Outpatient (REF) | payer OTHER ==
[~2022-09-05] MED LIST changes: +BACL10TA2 PO; +HYDR-4571 PO; +HYDR-643 PO; +IBUP-1730 PO; +LEXA1TAB PO; +LORA-674 PO; +OFLO5DRO AD; +ONDA4TAB6 PO; +VITMTA PO
[2022-09-05 13:00] LABS: BASO % 0.7 % (0.0-1.0); EOS # 0.2 10^3/uL (0.0-0.5); EOS % 4.3 % (0.0-3.0); HEMATOCRIT 38.8 % (36.0-47.0); HEMOGLOBIN 12.8 g/dl (12.0-15.5); LYMPH # 1.6 10^3/uL (1.5-5.0); LYMPH % 37.6 % (24.0-44.0); MEAN CORPUSCULAR HEMOGLOBIN 29.6 pg (27.0-33.0); MEAN CORPUSCULAR VOLUME 89.6 fl (80.0-96.0); MONO # 0.2 10^3/uL (0.0-0.8); MONO % 5.7 % (2.0-8.0); NEUTROPHILS # 2.2 10^3/uL (1.5-8.5); NEUTROPHILS % 51.5 % (36.0-66.0); PLATELET COUNT, AUTOMATED 149 10^3/uL (150-450); RED BLOOD COUNT 4.33 10^6/uL (4.00-5.40); WHITE BLOOD COUNT 4.2 10^3/uL (4.0-10.0)
[2022-09-05 13:30] LABS: ALBUMIN 4.1 G/DL (3.2-5.2); ALKALINE PHOSPHATASE 59 U/L (46-116); ALT/SGPT < 9 U/L (7.0-40); AST/SGOT < 8 U/L (<34); BILIRUBIN,TOTAL 1.5 MG/DL (0.3-1.2); BLOOD UREA NITROGEN 15 MG/DL (9-23); CARBON DIOXIDE LEVEL 23 MMOL/L (20-31); CHLORIDE LEVEL 108 MMOL/L (98-107); CREATININE FOR GFR 0.75 MG/DL (0.55-1.30); GLOMERULAR FILTRATION RATE > 60.0 (>60); GLUCOSE, FASTING 88 MG/DL (60-100); IRON (FE) 66 UG/DL (50-170); PERCENT SATURATION 19.4 % (13.2-45.0); POTASSIUM SERUM 3.7 MMOL/L (3.5-5.1); SODIUM LEVEL 142 MMOL/L (136-145); TOTAL IRON BINDING CAPACITY 341 UG/DL (250-425); TOTAL PROTEIN 6.7 G/DL (5.7-8.2)
[2022-09-05 13:32] LABS: FERRITIN 63.1 NG/ML (7.3-270.7); THYROID STIMULATING HORMONE 0.928 uIU/ML (0.55-4.78); TOTAL 25(OH) VITAMIN D 29.5 NG/ML (20.0-100.0)
[2022-09-05 13:33] LABS: FREE T4 1.05 NG/DL (0.89-1.76)
== END ==
LOC: M SFHCADAM 08:57
PROVIDERS: ATTEND Physician Assistant
DX: F41.8 Other specified anxiety disorders (principal); R42 Dizziness and giddiness

== ENCOUNTER → 2022-11-22 | Outpatient (REF) | payer OTHER, MEDICAID ==
[~2022-11-22] MED LIST changes: +LORA-1041 PO; -LORA-674 PO; +MECL-209 PO; -MECL1TAB31 PO
== END ==
LOC: M SFHCLERA 16:54
PROVIDERS: ATTEND Physician Assistant
DX: H92.02 Otalgia, left ear (principal); J02.9 Acute pharyngitis, unspecified

== ENCOUNTER → 2023-06-11 | Outpatient (REF) | payer OTHER ==
[~2023-06-11] MED LIST changes: -FLUT50SP17; +FLUTISP
[2023-06-11 13:59] LABS: BASO % 0.7 % (0.0-1.0); EOS # 0.1 10^3/uL (0.0-0.5); EOS % 2.3 % (0.0-3.0); HEMATOCRIT 42.2 % (36.0-47.0); LYMPH # 1.9 10^3/uL (1.5-5.0); LYMPH % 32.6 % (24.0-44.0); MEAN CORPUSCULAR HEMOGLOBIN 29.3 pg (27.0-33.0); MEAN CORPUSCULAR HGB CONC 33.2 g/dl (32.0-36.5); MEAN CORPUSCULAR VOLUME 88.3 fl (80.0-96.0); MONO # 0.5 10^3/uL (0.0-0.8); MONO % 8.6 % (2.0-8.0); NEUTROPHILS # 3.2 10^3/uL (1.5-8.5); NEUTROPHILS % 55.4 % (36.0-66.0); PLATELET COUNT, AUTOMATED 180 10^3/uL (150-450); RED BLOOD COUNT 4.78 10^6/uL (4.00-5.40); WHITE BLOOD COUNT 5.7 10^3/uL (4.0-10.0)
[2023-06-11 14:00] LABS: ALKALINE PHOSPHATASE 76 U/L (46-116); ALT/SGPT 20 U/L (7.0-40); AST/SGOT 12 U/L (<34); BILIRUBIN,TOTAL 1.4 MG/DL (0.3-1.2); BLOOD UREA NITROGEN 17 MG/DL (9-23); CALCIUM LEVEL 9.4 MG/DL (8.5-10.1); CARBON DIOXIDE LEVEL 26 MMOL/L (20-31); CHLORIDE LEVEL 104 MMOL/L (98-107); CREATININE FOR GFR 0.72 MG/DL (0.55-1.30); GLOMERULAR FILTRATION RATE > 60.0 (>60); GLUCOSE, FASTING 91 MG/DL (60-100); POTASSIUM SERUM 4.3 MMOL/L (3.5-5.1); SODIUM LEVEL 137 MMOL/L (136-145)
[2023-06-11 14:05] LABS: FREE T4 0.96 NG/DL (0.89-1.76)
[2023-06-11 14:06] LABS: THYROID STIMULATING HORMONE 1.536 uIU/ML (0.55-4.78)
== END ==
LOC: M SFHCADAM 10:10
PROVIDERS: ATTEND Family Medicine
DX: Z00.00 Encounter for general adult medical examination without abnormal findings (principal); R09.89 Other specified symptoms and signs involving the circulatory and respiratory systems

== ENCOUNTER → 2025-01-12 | Outpatient (REF) | payer OTHER ==
[~2025-01-12] MED LIST changes: +FLUO-365; -FLUO20CA22; +ONDA-282; +ONDA-282 PO; -ONDA4TAB6; -ONDA4TAB6 PO
== END ==
LOC: M LAB REF 17:24
PROVIDERS: ATTEND Otolaryngology
DX: H60.8X1 Other otitis externa, right ear (principal)

== ENCOUNTER 2025-01-13 19:58 | Emergency (ER) | payer OTHER ==
[~2025-01-13] VITALS: Ht 165.1 cm; Wt 105.2 kg
[2025-01-13] MEDS ORDERED: CIPROFLOXACIN 400 MG in IV 1 EA IV ONE (20:55)
[2025-01-13 21:29] LABS: BASO # 0.0 10^3/uL (0.0-0.2); BASO % 0.2 % (0.0-1.0); EOS # 0.1 10^3/uL (0.0-0.5); EOS % 0.7 % (0.0-3.0); LYMPH # 1.5 10^3/uL (1.5-5.0); LYMPH % 16.8 % (24.0-44.0); MONO # 0.7 10^3/uL (0.0-0.8); MONO % 8.1 % (2.0-8.0); NEUTROPHILS # 6.4 10^3/uL (1.5-8.5); NEUTROPHILS % 73.9 % (36.0-66.0); PLATELET COUNT, AUTOMATED 184 10^3/uL (150-450)
[2025-01-13] MEDS: CIPROFLOXACIN 500 MG TABLET PO ONE (21:31)
[2025-01-13 21:50] LABS: CALCIUM LEVEL 8.5 MG/DL (8.5-10.1); CARBON DIOXIDE LEVEL 26 MMOL/L (20-31); CHLORIDE LEVEL 106 MMOL/L (98-107); CREATININE FOR GFR 0.80 MG/DL (0.55-1.30); GLOMERULAR FILTRATION RATE > 90.0 (>60); POTASSIUM SERUM 4.0 MMOL/L (3.5-5.1); SODIUM LEVEL 142 MMOL/L (136-145)
[2025-01-13 22:02] LABS: C REACTIVE PROTEIN QUANTITATIV 13.44 MG/DL (<1.0)
[2025-01-13 22:44] VITALS: BP 129/86; TEMP 98.5; O2SAT 100
== END 2025-01-13 22:46 | disposition home or self-care (01) ==
LOC: M ED 19:58
DX: H60.91 Unspecified otitis externa, right ear (principal); Z91.041 Radiographic dye allergy status; Z91.09 Other allergy status, other than to drugs and biological substances; Z79.1 Long term (current) use of non-steroidal anti-inflammatories (NSAID); Z79.899 Other long term (current) drug therapy; Z79.2 Long term (current) use of antibiotics